=== PATIENT | male | born 1945 | race Caucasian/White ===

== ENCOUNTER 2020-04-16 07:42 | Outpatient (REF) | payer MEDICARE, SELFPAY | END 2020-04-16 07:43 | disposition home or self-care (01) | LOC: HO.LAB 07:42 | PROVIDERS: Visit Provider Internal Medicine | DX: Z20.828 Contact with and (suspected) exposure to other viral communicable diseases (principal) | CPT/HCPCS: C9803; U0003 ==

== ENCOUNTER 2020-05-19 12:49 | Outpatient (REF) | payer MEDICARE, SELFPAY ==
[2020-05-19 15:29] LABS: MANUAL DIFF FLAG NO
[2020-05-19 15:42] LABS: Basophils Absolute Auto 0.1 X10*3/uL (0.0-0.2); Basophils Percent Auto 0.7 % (0-2); Eosinophils Absolute Auto 0.3 X10*3/uL (0.0-0.4); Eosinophils Percent Auto 2.8 % (0-4); Hematocrit 54.8 % (42-52); Hemoglobin 17.6 g/dl (14.0-18.0); Imm Gran Abs Auto 0.04 X10*3/uL (0.00-0.03); Imm Gran Pct Auto 0.3 % (0.0-0.4); Lymphocytes Absolute Auto 3.4 X10*3/uL (1.2-4.9); Lymphocytes Percent Auto 27.8 % (20-40); Mean Corpuscular HGB Conc 32.1 g/dl (31.0-36.0); Mean Corpuscular Hemoglobin 27.4 pg (27.0-33.0); Mean Corpuscular Volume 85.2 fL (80-98); Mean Platelet Volume 10.5 fL (9.4-12.4); Monocytes Absolute Auto 0.8 X10*3/uL (0.1-1.2); Monocytes Percent Auto 6.4 % (2-11); Neutrophils Absolute Auto 7.5 X10*3/uL (2.0-8.3); Platelet Count 263 X10*3/uL (160-400); Red Blood Count 6.43 X10*6/uL (4.60-5.80); Red Cell Distribution Width 15.8 % (11.0-16.0); White Blood Count 12.2 X10*3/uL (4.8-10.8)
[2020-05-19 16:37] LABS: Erythrocyte Sedimentation Rate 10 MM/HR (0-15)
[2020-05-20 06:58] LABS: Immunoglobulin E 19 kU/L (<OR=114)
[2020-05-20 15:08] LABS: Cyclic Citrullinated Peptide <16 UNITS
[2020-05-21 15:43] LABS: Anti Nuclear Antibody Screen POSITIVE (NEGATIVE)
[2020-05-27 20:33] LABS: Asperg fumigatus Precip Abs NEGATIVE (NEGATIVE); Micropoly faeni Abs NEGATIVE (NEGATIVE); Pigeon serum Abs NEGATIVE (NEGATIVE); Saccharo pora viridis Abs NEGATIVE (NEGATIVE); Thermo candidus Abs NEGATIVE (NEGATIVE); Thermoa vulgaris #1 NEGATIVE (NEGATIVE)
[2020-05-28 14:27] LABS: Angiotensin Converting Enzyme 80 U/L (9-67)
== END 2020-05-19 12:50 | disposition home or self-care (01) ==
LOC: HO.LAB 12:49
PROVIDERS: PCP Internal Medicine; Visit Provider Hospitalist
DX: J84.10 Pulmonary fibrosis, unspecified (principal); J96.21 Acute and chronic respiratory failure with hypoxia
CPT/HCPCS: 36415; 82164; 82785; 85025; 85652; 86038; 86039; 86200; 86331; 86606; 86609; 99202

== ENCOUNTER 2020-06-02 12:49 | Outpatient (REF) | payer MEDICARE, SELFPAY ==
--- NOTE | 2020-06-02 12:51 | CT_ITS ---
EXAMINATION: CT CHEST WITHOUT CONTRAST CLINICAL INFORMATION: Pulmonary fibrosis. COMPARISON: None TECHNIQUE: Multidetector volumetric CT imaging of the chest was done. Axial MIP volume rendering provided. Sagittal and coronal reformatted images were obtained. This CT examination was performed using dose optimization techniques as appropriate, variously including the following: *Automated exposure control *Adjustment of mA and/or kV according to patient size (this includes techniques or standardized protocols for targeted exams where dose is matched to indication/reason for exam; i.e. extremities or head) *Use of iterative reconstruction technique DLP: 197 mGy-cm FINDINGS: CAT[employer]ING TR[employer]IVER: Well-inflated lungs are clear. LUNGS: There is diffuse paraseptal and centrilobular emphysema. There is no acute pneumonic constellation. There are multiple small calcified 2 mm pulmonary nodules, likely granuloma. No noncalcified pulmonary nodule visualized. There is fine increased interstitial markings seen throughout both lungs. There is subpleural right lower lobe lateral, posterior segment, lingular honeycombing suggestive of early chronic interstitial lung changes. MEDIASTINUM: The thyroid lobes are symmetric and normal. The central trachea and the bronchi are widely patent. There is 1 cm pretracheal lymph node. Heart size and the great vessels are normal caliber. There are coronary artery and atherosclerotic thoracic arch calcifications. No pericardial effusion seen. PLEURA: There is no pleural effusion. No pleural mass or thickening. AXILLA: No lymphadenopathy. UPPER ABDOMEN: Visualized liver, spleen, pancreas and bilateral adrenal glands are unremarkable. OSSEOUS STRUCTURES: There is exaggerated thoracic kyphosis. There is moderate ventral spondylosis throughout the dorsal spine. No lytic process. CT/CT chest wo con IMPRESSION: Diffuse emphysema with early chronic interstitial fibrotic changes in the right lower lobe and lingula. Scattered calcified granulomas seen throughout both lungs.
== END 2020-06-02 12:50 | disposition home or self-care (01) ==
LOC: HO.CT 12:49
PROVIDERS: PCP Internal Medicine; Visit Provider Hospitalist
DX: J84.10 Pulmonary fibrosis, unspecified (principal)
CPT/HCPCS: 71250

== ENCOUNTER → 2020-06-23 14:12 | Outpatient (BNVA) | payer MEDICARE, SELFPAY | PROVIDERS: PCP Internal Medicine; Visit Provider Hospitalist | DX: J84.10 Pulmonary fibrosis, unspecified (principal); J43.2 Centrilobular emphysema; J96.11 Chronic respiratory failure with hypoxia; R91.8 Other nonspecific abnormal finding of lung field | CPT/HCPCS: 99212 ==

== ENCOUNTER → 2020-07-23 08:22 | Outpatient (BNVA) | payer MEDICARE, SELFPAY | PROVIDERS: PCP Internal Medicine; Visit Provider Hospitalist | DX: R91.8 Other nonspecific abnormal finding of lung field (principal); J96.11 Chronic respiratory failure with hypoxia; J43.2 Centrilobular emphysema; J96.21 Acute and chronic respiratory failure with hypoxia; J84.10 Pulmonary fibrosis, unspecified | CPT/HCPCS: 99212 ==

== ENCOUNTER → 2020-10-19 11:11 | Outpatient (BNVA) | payer MEDICARE, SELFPAY | PROVIDERS: PCP Internal Medicine; Visit Provider Hospitalist | DX: J96.11 Chronic respiratory failure with hypoxia (principal); R91.8 Other nonspecific abnormal finding of lung field; J43.2 Centrilobular emphysema; J84.10 Pulmonary fibrosis, unspecified | CPT/HCPCS: 99212 ==

== ENCOUNTER 2020-10-27 07:08 | Outpatient (REF) | payer MEDICARE, SELFPAY ==
--- NOTE | ~2020-10-27 | XR_ITS ---
EXAMINATION: XR CHEST CLINICAL INFORMATION: Pulmonary fibrosis COMPARISON: Previous chest CT May 2020 TECHNIQUE: 2 views of the chest were obtained. FINDINGS: The cardiac silhouette does not appear enlarged. The thoracic aorta is calcified. Hilar and mediastinal contours are otherwise unremarkable.. The lung volumes are low. There are increased interstitial markings lungs compatible with patient's diagnosis of pulmonary fibrosis. There is mild left apical pleural thickening. There is no pleural effusion. There are degenerative changes of the spine. XR/XR chest 2V IMPRESSION: Increased interstitial markings and low lung volumes compatible with patient's diagnosis of pulmonary fibrosis. No change from previous chest CT scan May 2020.
== END 2020-10-27 07:09 | disposition home or self-care (01) ==
LOC: HO.XRAY 07:08
PROVIDERS: PCP Internal Medicine; Visit Provider Hospitalist
DX: J84.10 Pulmonary fibrosis, unspecified (principal)
CPT/HCPCS: 71046

== ENCOUNTER → 2020-11-27 12:55 | Outpatient (BNVA) | payer MEDICARE, SELFPAY | PROVIDERS: PCP Internal Medicine; Visit Provider Hospitalist | DX: J96.11 Chronic respiratory failure with hypoxia (principal); R91.8 Other nonspecific abnormal finding of lung field; J43.2 Centrilobular emphysema; J84.10 Pulmonary fibrosis, unspecified | CPT/HCPCS: 99212 ==

== ENCOUNTER 2021-02-12 11:01 | Outpatient (REF) | payer MEDICARE, SELFPAY ==
--- NOTE | ~2021-02-12 | XR_ITS ---
EXAMINATION: XR CHEST CLINICAL INFORMATION: Pulmonary fibrosis COMPARISON: 10/27/2020 and 06/02/2020 TECHNIQUE: 2 views of the chest were obtained. FINDINGS: Again seen is diffuse coarse interstitial opacity with reticulation most notable in the periphery of the right lung consistent with previously seen fibrosis and emphysema. Right greater than left apical pleural parenchymal scarring again seen. No new focal consolidation or mass. The findings are not convincingly changed from the prior study 10/27/2020. Calcified aortic arch. Normal heart size. Regional skeleton intact. S-shaped thoracolumbar scoliosis and multilevel degenerative changes of the thoracic spine. XR/XR chest 2V IMPRESSION: No significant change from prior study.
== END 2021-02-12 11:02 | disposition home or self-care (01) ==
LOC: HO.XRAY 11:01
PROVIDERS: PCP Internal Medicine; Visit Provider Hospitalist
DX: J96.11 Chronic respiratory failure with hypoxia (principal); R91.8 Other nonspecific abnormal finding of lung field; J43.2 Centrilobular emphysema; J84.10 Pulmonary fibrosis, unspecified
CPT/HCPCS: 71046; 99212

== ENCOUNTER → 2021-04-20 08:40 | Outpatient (BNVA) | payer MEDICARE, SELFPAY | PROVIDERS: PCP Internal Medicine; Visit Provider Hospitalist | DX: J96.11 Chronic respiratory failure with hypoxia (principal); J43.2 Centrilobular emphysema; J84.10 Pulmonary fibrosis, unspecified; R91.8 Other nonspecific abnormal finding of lung field | CPT/HCPCS: 99212 ==

== ENCOUNTER → 2021-06-22 08:44 | Outpatient (BNVA) | payer MEDICARE, SELFPAY | PROVIDERS: PCP Internal Medicine; Visit Provider Hospitalist | DX: J96.11 Chronic respiratory failure with hypoxia (principal); J43.2 Centrilobular emphysema; R91.8 Other nonspecific abnormal finding of lung field; J84.10 Pulmonary fibrosis, unspecified | CPT/HCPCS: 99212 ==

== ENCOUNTER 2021-09-13 08:02 | Outpatient (REF) | payer MEDICARE, SELFPAY ==
--- NOTE | ~2021-09-13 | XR_ITS ---
EXAMINATION: XR CHEST CLINICAL INFORMATION: Chronic respiratory failure with hypoxia COMPARISON: Chest radiograph from 02/12/2021 TECHNIQUE: 2 views of the chest were obtained. FINDINGS: Bilateral low lung volumes. Redemonstration of coarse interstitial opacities with reticulation throughout the bilateral lung dunn. Biapical pleural parenchymal scarring. Bilateral apices limited secondary to patient positioning and overlying chin. No pneumothorax. Trachea is midline. Cardiomediastinal silhouette is stable. Aorta demonstrates tortuosity with atherosclerotic calcifications. No large pleural effusion. Osteopenia. S-shaped curvature of the thoracolumbar spine. Multilevel degenerative changes of the thoracolumbar spine. Soft tissues are unremarkable. XR/XR chest 2V IMPRESSION: 1. Bilateral low lung volumes. 2. Redemonstration of coarse interstitial opacities with reticulation throughout the bilateral lung dunn. 3. Biapical pleural parenchymal scarring. 4. Bilateral apices limited secondary to patient positioning and overlying chin.
[2021-09-13 08:42] LABS: ABG Refer to POC result
[2021-09-13 08:45] LABS: ABG pCO2 23 mmHg (32-45); ABG pO2 60 mmHg (83-108)
[2021-09-13 08:46] LABS: ABG HCO3 18 mmol/L (22-26)
== END 2021-09-13 08:03 | disposition home or self-care (01) ==
LOC: HO.LAB 08:02
PROVIDERS: PCP Internal Medicine; Visit Provider Hospitalist
DX: J96.11 Chronic respiratory failure with hypoxia (principal)
CPT/HCPCS: 71046; 82803

== ENCOUNTER 2021-09-14 08:32 | Outpatient (REF) | payer MEDICARE, SELFPAY ==
--- NOTE | ~2021-09-14 | XR_ITS ---
EXAMINATION: XR LUMBOSACRAL SPINE CLINICAL INFORMATION: Pain COMPARISON: Previous chest CT May 2020 and chest x-rays most recent from yesterday TECHNIQUE: Three views of the lumbosacral spine. FINDINGS: There is exaggerated lumbar lordosis. There are T12 and L1 moderate compression fractures. These do not appear acute but are new in the interval from February 2021 chest x-ray. No acute fracture is seen. Disc spaces are normal. There is lower lumbar spine facet arthritis. There is evidence of atherosclerotic disease. XR/XR lumbar spine 2-3V IMPRESSION: Moderate T12 and L1 vertebral body compression fractures that do not appear acute but are new in the interval from February 2021 chest x-ray. Degenerative changes. Atherosclerotic disease.
[2021-09-14 09:36] LABS: MANUAL DIFF FLAG NO
[2021-09-14 10:44] LABS: Basophils Absolute Auto 0.1 X10*3/uL (0.0-0.2); Basophils Percent Auto 0.3 % (0-2); Eosinophils Absolute Auto 0.1 X10*3/uL (0.0-0.4); Eosinophils Percent Auto 0.5 % (0-4); Hematocrit 51.5 % (42.0-52.0); Hemoglobin 16.4 g/dl (14.0-18.0); Imm Gran Abs Auto 0.18 X10*3/uL (0.00-0.03); Imm Gran Pct Auto 1.1 % (0.0-0.4); Lymphocytes Absolute Auto 3.5 X10*3/uL (1.2-4.9); Lymphocytes Percent Auto 20.9 % (20-40); Mean Corpuscular HGB Conc 31.8 g/dl (31.0-36.0); Mean Platelet Volume 10.4 fL (9.4-12.4); Monocytes Absolute Auto 0.9 X10*3/uL (0.1-1.2); Monocytes Percent Auto 5.6 % (2-11); Neutrophils Absolute Auto 11.9 x10*3/uL (2.0-8.3); Neutrophils Percent Auto 71.6 % (45-73); Platelet Count 234 X10*3/uL (160-400); Red Blood Count 5.66 X10*6/uL (4.60-5.80); Red Cell Distribution Width 18.9 % (11.0-16.0); White Blood Count 16.7 X10*3/uL (4.8-10.8)
[2021-09-14 11:15] LABS: Anion Gap 16 (12-20); Blood Urea Nitrogen 23 mg/dL (9-16); Calcium 9.5 mg/dL (8.4-10.2); Carbon Dioxide 23 mmol/L (22-29); Chloride 107 mmol/L (96-108); Estimated Glomerular Filt Rate > 60; Glucose Random 79 mg/dL (60-115); Potassium 4.1 mmol/L (3.3-5.1); Sodium 142 mmol/L (135-145)
[2021-09-14 11:26] LABS: Erythrocyte Sedimentation Rate 12 MM/HR (0-15)
== END 2021-09-14 08:33 | disposition home or self-care (01) ==
LOC: HO.LAB 08:32
PROVIDERS: PCP Internal Medicine; Visit Provider Hospitalist
DX: J84.10 Pulmonary fibrosis, unspecified (principal); J84.9 Interstitial pulmonary disease, unspecified; M54.9 Dorsalgia, unspecified; Z99.81 Dependence on supplemental oxygen
CPT/HCPCS: 36415; 72100; 80048; 85025; 85652; Q3014

== ENCOUNTER → 2021-11-03 09:27 | Outpatient (BNVA) | payer MEDICARE, SELFPAY | PROVIDERS: PCP Internal Medicine; Visit Provider Hospitalist | DX: J96.11 Chronic respiratory failure with hypoxia (principal); J43.2 Centrilobular emphysema; J84.10 Pulmonary fibrosis, unspecified; R91.8 Other nonspecific abnormal finding of lung field; M79.89 Other specified soft tissue disorders; M54.9 Dorsalgia, unspecified | CPT/HCPCS: 99212 ==

== ENCOUNTER → 2022-01-10 12:56 | Outpatient (REF) | payer MEDICARE, SELFPAY ==
--- NOTE | 2022-01-10 12:58 | CA_ITS ---
Transthoracic Echocardiogram Patient (Last, First, Middle): Andre Paez, Gender: Male Date of : 1945 Age: 76 Procedure Date: 01/10/2022 Procedure Type: Transthoracic Echocardiogram Location: OP Height: 162.56 cm Weight: 64.41 kg BSA: 1.69 m2 Heart Rate: 109 bpm BP: 120 / 68 mmHg Pickle Pumper: SB Referring MD: Viral Lr MD Symptoms: I27.20 - Pulmonary hypertension, unspecified Study Quality: Technically Difficult but adequate/SOB HOB up ECG Rhythm: Tachycardia Conclusions: - The left ventricular systolic function is low normal. The visually estimated ejection fraction is between 50-55%. - Severely increased right ventricular cavity size. There is normal right ventricular systolic function. - There is mild to moderate tricuspid valve regurgitation. - The right ventricular systolic pressure is 88 mmHg. Severe pulmonary hypertension is present. Findings Left Ventricle Normal left ventricular cavity size. There is normal left ventricular wall thickness. The left ventricular systolic function is low normal. The visually estimated ejection fraction is between 50-55%. Regional wall motion abnormalities can not be excluded due to suboptimal endocardial definition. There is a flattened septum in systole consistent with right ventricular pressure overload. Diastolic function is normal for age. Right Ventricle Severely increased right ventricular cavity size. There is normal right ventricular systolic function. Atria Both atria are normal in size. Aortic Valve There is a normal trileaflet aortic valve. There is no aortic valve stenosis. There is no aortic valve regurgitation. Mitral Valve There is mild mitral annular calcification. There is trace mitral valve regurgitation. There is no mitral valve stenosis. Pulmonic Valve There is trace to mild pulmonic valve regurgitation. Tricuspid Valve Normal tricuspid valve structure. There is mild to moderate tricuspid valve regurgitation. The right ventricular systolic pressure is 88 mmHg. Severe pulmonary hypertension is present. Great Vessels The sino tubular ridge and asc aorta are normal in size. Small plaque is seen in the sinuses of Valsalva. Venous The inferior vena cava is normal in size and collapses less than 50% with inspiration. Pericardium/Pleural There is no evidence of pericardial effusion. Prior Study Comparison No prior study available for comparison. Measurements 2D Linear Measurements IVSd: 0.90 0.6-0.9/0.6-1.0 cm LVIDd: 3.29 3.9-5.3/4.2-5.9 cm LVIDd Index: 1.95 2.4-3.2/2.2-3.1 cm/m2 LVIDs: 2.02 2.0-3.6 cm LVPWd: 0.76 0.7-1.1 cm LA Diam: 2.60 2.7-3.8/3.0-4.0 cm LAIDs Index: 1.54 1.5-2.3 cm/m2 LV Mass: 89.33 67-162/88-224 g LV Mass Index: 52.86 43-95/49-115 g/m2 LVOT Diam: 2.10 3.0+(-)1.3 cm Mitral Valve MV Pk E: 0.44 MV PK A: 0.75 MV Decel Time: 114.00 E/A: 0.60 E'Lateral: 10.00 E'Medial: 4.90 E/E' Med: 8.90 E/E' Lat: 4.40 PHT: 33.00 MVA PHT: 6.67 Decel [place]: 3.83 Aortic Valve AoV Pk [place]: 0.95 AoV Mn [place]: 0.67 AoV VTI: 0.14 AoV Pk Grad: 4.00 Aov Mn Grad: 2.00 NEELAM Cont.VTI: 2.48 LVOT LVOT Pk [place]: 0.57 LVOT Mn [place]: 0.38 LVOT VTI: 0.10 LVOT Pk Grad: 1.00 LVOT Mn Grad: 1.00 LVOT Diam: 2.10 LVOT Area: 3.46 Diastolic Function MV Pk E: 0.44 MV Pk A: 0.75 E/A: 0.60 E'Medial: 4.90 E/E' Med: 8.90 E' Laterial: 10.00 E/E' Lat: 4.40 Right Ventricle TAPSE (mm): 18.90 TVS' [place]: 13.10 Tricuspid Valve TR Pk [place]: 4.48 TR Pk Grad: 80.00 RA Press: 8.00 RVSP: 88.00 Great Vessels Aorta Sinus of Valsalva: 3.30 2.0-3.5 cm Ao Asc: 3.30 2.1-3.4 cm Pulmonary Valve PV Pk [place]: 0.53 Peak PV Grad: 1.00 Updated in Other Vendor System with Status of Final Roger Goncalves MD electronically signed on 01/11/2022 10:41:29 AM with status of Final
[2022-01-10 14:34] LABS: MANUAL DIFF FLAG NO; Venous Blood Gas Refer to POC result
[2022-01-10 14:41] LABS: VBG Base Excess -5.5 mmol/L; VBG HCO3 18 mmol/L (22-26); VBG pCO2 30 mmHg; VBG pH 7.38 (7.32-7.43); VBG pO2 37 mmHg
[2022-01-10 15:34] LABS: Basophils Absolute Auto 0.1 X10*3/uL (0.0-0.2); Basophils Percent Auto 0.8 % (0-2); Eosinophils Absolute Auto 0.2 X10*3/uL (0.0-0.4); Eosinophils Percent Auto 1.8 % (0-4); Hematocrit 49.8 % (42.0-52.0); Hemoglobin 15.5 g/dl (14.0-18.0); Imm Gran Abs Auto 0.08 X10*3/uL (0.00-0.03); Imm Gran Pct Auto 0.6 % (0.0-0.4); Lymphocytes Absolute Auto 2.9 X10*3/uL (1.2-4.9); Lymphocytes Percent Auto 22.7 % (20-40); Mean Corpuscular HGB Conc 31.1 g/dl (31.0-36.0); Mean Corpuscular Hemoglobin 26.9 pg (27.0-33.0); Mean Corpuscular Volume 86.3 fL (80.0-98.0); Mean Platelet Volume 10.1 fL (9.4-12.4); Monocytes Percent Auto 7.4 % (2-11); Neutrophils Absolute Auto 8.6 x10*3/uL (2.0-8.3); Neutrophils Percent Auto 66.7 % (45-73); Platelet Count 372 X10*3/uL (160-400); Red Blood Count 5.77 X10*6/uL (4.60-5.80); Red Cell Distribution Width 15.9 % (11.0-16.0); White Blood Count 12.9 X10*3/uL (4.8-10.8)
[2022-01-10 16:04] LABS: Alanine Aminotransferase 7 U/L (0-40); Albumin Level 3.4 g/dL (3.5-5.0); Alkaline Phosphatase 129 U/L (39-117); Anion Gap 21 (12-20); Aspartate Amino Transferase 21 U/L (5-37); Bilirubin Direct 0.6 mg/dL (0.0-0.5); Bilirubin Total 1.2 mg/dL (0.0-1.0); Blood Urea Nitrogen 8 mg/dL (9-16); Calcium 9.5 mg/dL (8.4-10.2); Carbon Dioxide 18 mmol/L (22-29); Chloride 104 mmol/L (96-108); Estimated Glomerular Filt Rate > 60; Glucose Random 81 mg/dL (60-115); Potassium 4.3 mmol/L (3.3-5.1); Sodium 139 mmol/L (135-145); Total Protein 6.7 g/dL (6.5-8.0)
[2022-01-10 18:49] LABS: Erythrocyte Sedimentation Rate 34 MM/HR (0-15)
== END ==
LOC: HO.CARD 12:56
PROVIDERS: PCP Internal Medicine; Visit Provider Hospitalist
DX: I27.20 Pulmonary hypertension, unspecified (principal); J96.11 Chronic respiratory failure with hypoxia; J84.10 Pulmonary fibrosis, unspecified; M79.89 Other specified soft tissue disorders
CPT/HCPCS: 36415; 80048; 80076; 82803; 85025; 85652; 93306

== ENCOUNTER → 2022-01-24 08:24 | Outpatient (BNVA) | payer MEDICARE, SELFPAY | PROVIDERS: PCP Internal Medicine; Visit Provider Hospitalist | DX: J96.11 Chronic respiratory failure with hypoxia (principal); J84.10 Pulmonary fibrosis, unspecified; I27.20 Pulmonary hypertension, unspecified; I51.7 Cardiomegaly; J43.2 Centrilobular emphysema; R91.8 Other nonspecific abnormal finding of lung field; M79.89 Other specified soft tissue disorders; Z99.81 Dependence on supplemental oxygen; Z87.891 Personal history of nicotine dependence | CPT/HCPCS: 99212 ==